=== PATIENT | male | born 1995 | race Caucasian/White ===

== ENCOUNTER 2025-01-06 14:21 | Emergency (ER) | payer OTHER, SELFPAY ==
--- OUTSIDE RECORDS SUMMARY | 2025-01-06 14:23 | XMS_ITS | Clinical Summary ---
Author Organization [facility] Address [address] [place] [id number] Care Team Providers Care Bar Hostess Name Role Phone Cierra Dahl MD Primary Care Provider [phone] Allergies No known active allergies Medications cetirizine (ZYRTEC) 5 MG tablet Take 1 tablet (5 mg total) by mouth daily. Active melatonin 5 MG tablet Take 1 tablet (5 mg total) by mouth nightly as needed. Active Active Problems Problem Noted Date Diagnosed Date Seasonal allergies 07/18/2024 Immunizations Immunization Administration Dates Next Due Influenza (Generic) 04/14/2015,04/10/2013 Social History Tobacco Use Types Packs/Day Years Used Date Smoking Tobacco: Never Passive Smoke Exposure: Past Smokeless Tobacco: Never Tobacco Cessation:Counseling Given: No Alcohol Use Standard Drinks/Week Comments Yes 15 (1 standard drink = 0.6 oz pu re alcohol) PHQ-2 Answer Date Recorded Patient Health Questionnaire-2 Score 0 07/18/2024 Sex and Gender Information Value Date Recorded Sex Assigned at Male 07/18/2024 12:04 PM ELECTRICAL TRYOUT PERSON Legal Sex Male 7:49 PM CDT Gender Identity Male 07/18/2024 12:04 PM ELECTRICAL TRYOUT PERSON Sexual Orientation Not on file Last Filed Vital Signs Vital Sign Reading Time Taken Comments Blood Pressure 122/80 07/18/2024 11:55 AM ELECTRICAL TRYOUT PERSON Pulse 80 07/18/2024 11:55 AM ELECTRICAL TRYOUT PERSON Temperature 36.6 C (97.9 F) 07/18/2024 11:55 AM ELECTRICAL TRYOUT PERSON Respiratory Rate 14 07/18/2024 11:55 AM ELECTRICAL TRYOUT PERSON Oxygen Saturation 97% 07/18/2024 11:55 AM ELECTRICAL TRYOUT PERSON Inhaled Oxygen Concentration - - Weight 70.3 kg (155 lb) 07/18/2024 11:55 AM ELECTRICAL TRYOUT PERSON Height 180.3 cm (5' 11) 07/18/2024 11:55 AM ELECTRICAL TRYOUT PERSON Body Mass Index 21.62 07/18/2024 11:55 AM ELECTRICAL TRYOUT PERSON Plan of Treatment Health Maintenance Due Date Last Done Comments Annual Physical 12/02/1998 Hepatitis C 12/02/2013 DTaP, Tdap and Td Vaccines ( 1 - Tdap) 12/02/2014 Hepatitis B Vaccines (1 of 3 - 19+ 3-dose series) 12/02/2014 COVID-19 Vaccine (3 - 2023-2 5 season) 2024 11/14/2020, 10/24/2020 PHQ-2 (Physician [place]) Completed 07/18/2024 HPV Vaccines Aged Out No longer eligi ble based on patient's age to complete this topic Meningococcal B Vaccine Aged Out No l onger eligible based on patient's age to complete this topic Meningococcal Vaccine Aged Out No argelia sharda eligible based on patient's age to complete this topic Pneumococcal Vaccine: Pediatrics (0 to 5 Years) and At-Risk Patients (6 to 49 Years) Aged Out No longer eligible b ased on patient's age to complete this topic RSV Immunizations Under 20 Months Aged Out No longer eligible b ased on patient's age to complete this topic Insurance [facility] Care Teams Bar Hostess Relationship Specialty Start Date End Date Cierra Dahl MD [address] [place] [id number] PCP - General FAMILY PRACTICE 07/18/24
[2025-01-06 14:24] VITALS: BP 129/81; PULSE 125; RESP 18; TEMP 36.9; O2SAT 99
--- NOTE | 2025-01-06 14:43 | ECG_ITS ---
Test Date: 2025-01-06 15:17:13 Measurements Intervals [place] Rate: 103 P: 72 TN: 169 QRS: 78 QRSD: 82 T: 59 QT: 354 QTc: 465 Interpretive Statements SINUS TACHYCARDIA ABNORMAL RHYTHM ECG No previous ECG available for comparison Electronically Signed On 01-07-2025 22:33:54 CDT by Elly Jacinto M.D.
--- OUTSIDE RECORDS SUMMARY | 2025-01-06 14:46 | XMS_ITS | Clinical Summary ---
Author Organization [facility] Address [address] [place] [id number] Care Team Providers Care Bottler Helper Name Role Phone Cierra Dahl MD Primary Care Provider [phone] Allergies No known active allergies Medications cetirizine [...] Sex Assigned at Male 07/18/2024 12:04 PM EPIC TRAINER Legal Sex Male 7:49 PM CDT Gender Identity Male 07/18/2024 12:04 PM EPIC TRAINER Sexual Orientation Not on file Last Filed Vital Signs Vital Sign Reading Time Taken Comments Blood Pressure 122/80 07/18/2024 11:55 AM EPIC TRAINER Pulse 80 07/18/2024 11:55 AM EPIC TRAINER Temperature 36.6 C (97.9 F) 07/18/2024 11:55 AM EPIC TRAINER Respiratory Rate 14 07/18/2024 11:55 AM EPIC TRAINER Oxygen Saturation 97% 07/18/2024 11:55 AM EPIC TRAINER Inhaled Oxygen Concentration - - Weight 70.3 kg (155 lb) 07/18/2024 11:55 AM EPIC TRAINER Height 180.3 cm (5' 11) 07/18/2024 11:55 AM EPIC TRAINER Body Mass Index 21.62 07/18/2024 11:55 AM EPIC TRAINER Plan of Treatment Health Maintenance Due Date Last Done Comments Annual Physical 12/02/1998 Hepatitis C 12/02/2013 DTaP, Tdap and Td Vaccines ( 1 - Tdap) 12/02/2014 Hepatitis B Vaccines (1 of 3 - 19+ 3-dose series) 12/02/2014 COVID-19 Vaccine (3 - 2023-2 5 season) 2024 11/14/2020, 10/24/2020 PHQ-2 (Physician [place]) Completed 07/18/2024 HPV Vaccines Aged Out No [...] topic Insurance [facility] Care Teams Bottler Helper Relationship Specialty Start Date End Date Cierra Dahl MD [address] [place] [id number] PCP - General FAMILY PRACTICE 07/18/24
[2025-01-06 15:08] LABS: Hematocrit 41.3 % (42.0-52.0); Hemoglobin 14.5 g/dL (14.0-18.0); Immature Granulocyte Percent A 0.5 % (0-0.5); Lymphocytes Absolute Auto 1.28 K/mm3 (0.9-3.2); Mean Corpuscular HGB Conc 35.1 g/dl (32-36); Mean Corpuscular Hemoglobin 33.3 pg (26-34); Mean Corpuscular Volume 94.9 fl (80-100); Nucleated Red Blood Cells Absolute Auto 0.000 K/mm3 (0.0-0.012); Nucleated Red Blood Cells Perc 0.0 % (0.0-0.2); Platelet Count Result 252 k/mm3 (150-375); Red Blood Count 4.35 M/mm3 (4.6-6.20); White Blood Count 3.8 K/mm3 (4.5-10.0)
[2025-01-06 15:19] LABS: INR 1.1; Prothrombin Time 14.1 Seconds (11.1-14.7)
[2025-01-06 15:21] LABS: Partial Thromboplastin Time 29.3 Seconds (22.3-36.8)
[2025-01-06] MEDS: SODIUM CHLORIDE 0.9% IV 2,000 ML 999 ML IV CONT (15:24)
[2025-01-06 15:25] VITALS: BP 134/105; PULSE 96; RESP 16; O2SAT 99
[2025-01-06 15:28] LABS: Alanine Aminotransferase 253 U/L (6-50); Albumin Level 4.2 g/dL (3.5-5.1); Alkaline Phosphatase 83 U/L (38-126); Anion Gap 14 mmol/L (4-12); Aspartate Amino Transferase 295 U/L (17-59); Bilirubin,Total 0.9 mg/dL (0.2-1.3); Blood Urea Nitrogen 3 mg/dL (9-20); Calcium 9.1 mg/dL (8.4-10.2); Carbon Dioxide 25 mmol/L (22-30); Chloride 101 mmol/L (98-107); Estimated CRCL calculation 149 ml/min; Estimated Glomerular Filt Rate > 60; Glucose 94 mg/dL (65-110); Potassium 3.6 mmol/L (3.4-5.0); Sodium 140 mmol/L (137-145); Total Protein 7.2 g/dL (6.3-8.2)
[2025-01-06 17:18] VITALS: BP 125/94; PULSE 98; RESP 18; O2SAT 98
--- NOTE | 2025-01-06 17:36 | ED_ITS ---
HPI - General Adult General Chief complaint: Eye Problems Stated complaint: eye problem Time Seen by Provider: 01/06/25 14:30 History of Present Illness HPI narrative: 29-year-old male present to the emergency department for evaluation for dry eyes. Patient states he has been drinking heavily over the course of the weekend and did use his Adderall that was not his own. Patient does report tachycardia and dehydration. Patient states he does drink heavier than he thinks he showed but does not feel that he has a drinking problem. Patient states he is attempting to decrease alcohol consumption. Denies any change in vision denies any headache. Patient denies any chest pain or shortness of breath. Related Data Allergies Allergy/AdvReac Type Severity Reaction Status Date / Time No Known Allergies Allergy Unknown Verified 01/06/25 15:25 Review of Systems 2 Review of Systems: All systems reviewed & are unremarkable except as noted in HPI and below Exam 2 Narrative: APPEARANCE: Well appearing, no pain, no distress, well-nourished. HEAD: normocephalic, atraumatic. EYES: Mild conjunctival injection with no fluorescein uptake no evidence of corneal abrasion NOSE: Normal no drainage EARS:TMS clear with good light reflex. THROAT: Pharynx clear, no exudate. NECK: Supple. No adenopathy, no masses. RESPIRATORY: Airway patent, respirations nonlabored. Clear to auscultation bilaterally, no rales, rhonchi, wheezing. CARDIOVASCULAR: Regular rate and rhythm without murmurs rubs or gallops. ABDOMINAL: Soft, nontender, nondistended, normal bowel sounds MUSCULOSKELETAL: Moves all extremities. Strength/ROM intact, No edema, No calf tenderness. NEURO: Alert. Cranial nerves II through XII intact. Grossly intact SKIN: Warm, dry. Normal Color Course Vital Signs Vital signs: Vital Signs Temperature 98.4 F 01/06/25 14:24 Pulse Rate 125 H 01/06/25 14:24 Respiratory Rate 18 01/06/25 14:24 Blood Pressure 129/81 01/06/25 14:24 Pulse Oximetry 99 01/06/25 14:24 Oxygen Delivery Room Air 01/06/25 14:24 Temperature 98.4 F 01/06/25 14:24 Pulse Rate 100 01/06/25 17:45 Respiratory Rate 16 01/06/25 17:45 Blood Pressure 118/76 01/06/25 17:45 Pulse Oximetry 99 07/06/25 17:45 Oxygen Delivery Room Air 01/06/25 14:24 Medical Decision Making MDM Narrative Medical decision making narrative: 29-year-old male presents emergency department for evaluation for dry eyes. Patient is currently afebrile with no leukocytosis hemoglobin 14.5. Patient had a INR of 1.1. Patient does have mild elevation in AST and ALT. Patient does admit to drinking heavily over the last few days. Patient states he does not drink every day. Patient states he does drink heavier than he probably showed. Patient is considering sling down on his drinking. Patient does have history of seasonal allergies and this may be part of the underlying issue with the itching of his eyes. Patient had no for seen uptake or evidence of corneal injury. Patient does have bilateral conjunctival injection with no discharge. Advised to use natural tears for lubrication along with [id number] antihistamine eye drop. Differential Diagnosis Differential Diagnosis: Corneal abrasion, conjunctivitis, dehydration, alcohol intoxication, substance abuse Vital Signs Vital Signs: Vital Signs Temperature 98.4 F 01/06/25 14:24 Pulse Rate 125 H 01/06/25 14:24 Respiratory Rate 18 01/06/25 14:24 Blood Pressure 129/81 01/06/25 14:24 Pulse Oximetry 99 01/06/25 14:24 Oxygen Delivery Room Air 01/06/25 14:24 Temperature 98.4 F 01/06/25 14:24 Pulse Rate 100 01/06/25 17:45 Respiratory Rate 16 01/06/25 17:45 Blood Pressure 118/76 01/06/25 17:45 Pulse Oximetry 99 01/06/25 17:45 Oxygen Delivery Room Air 01/06/25 14:24 Lab Data Lab results reviewed: Yes I reviewed the patient's lab results. 01/06/25 14:59 01/06/25 14:59 Labs: Lab Results 01/06/25 01/06/25 Range/Units 14:59 17:23 WBC 3.8 L (4.5-10.0) K/mm3 RBC 4.35 L (4.6-6.20) M/mm3 Hgb 14.5 (14.0-18.0) g/dL Hct 41.3 L (42.0-52.0) % MCV 94.9 (80-100) fl MCH 33.3 (26-34) pg MCHC 35.1 (32-36) g/dl RDW 11.9 (11.5-14.5) % Plt Count 252 (150-375) k/mm3 MPV 8.9 (7.4-10.4) fl Immature Gran % (Auto) 0.5 (0-0.5) % Neut % (Auto) 46.8 (45.5-73.1) % Lymph % (Auto) 33.6 (18.3-44.2) % [place] % (Auto) 16.0 H (2.6-8.5) % Eos % (Auto) 1.8 (0-4.4) % Baso % (Auto) 1.3 H (0.2-1.2) % Lymph # (Auto) 1.28 (0.9-3.2) K/mm3 [place] # (Auto) 0.6 (0.1-0.6) K/mm3 Eos # (Auto) 0.1 (0-0.3) K/mm3 Baso # (Auto) 0.1 (0.0-0.1) K/mm3 Abs Immat Gran (auto) 0.02 (0.00-0.031) K/mm3 Absolute Neuts (auto) 1.8 (1.3-6.7) K/mm3 Absolute Nucleated RBC 0.000 (0.0-0.012) K/mm3 Nucleated RBC % 0.0 (0.0-0.2) % PT 14.1 (11.1-14.7) Seconds INR 1.1 APTT 29.3 (22.3-36.8) Seconds Sodium 140 (137-145) mmol/L Potassium 3.6 (3.4-5.0) mmol/L Chloride 101 (98-107) mmol/L Carbon Dioxide 25 (22-30) mmol/L Anion Gap 14 H (4-12) mmol/L BUN 3 L (9-20) mg/dL Creatinine 0.58 L (0.7-1.3) mg/dL Estim Creat Clear Calc 149 ml/min Estimated GFR > 60 (59 - ) Glucose 94 (65-110) mg/dL Lactic Acid 2.2 H 1.9 (0.7-2.0) mmol/L Calcium 9.1 (8.4-10.2) mg/dL Total Bilirubin 0.9 (0.2-1.3) mg/dL AST 295 H (17-59) U/L ALT 253 H (6-50) U/L Alkaline Phosphatase 83 (38-126) U/L Total Protein 7.2 (6.3-8.2) g/dL Albumin 4.2 (3.5-5.1) g/dL Discharge Plan Discharge Clinical Impression: Conjunctival injection Patient Disposition: Home Condition: Stable Instructions: Antibiotic Form, Eye Lubricant (Into the eye) Additional Instructions: Use natural tears to lubricate your eyes. I do recommend using antihistamine eyedrops such as, [place], as directed. Drink plenty of fluids. Avoid excessive alcohol intake. Do not take prescription medications that are not prescribed to you. Have close follow-up with your primary care physician. I do recommend close follow-up with Ophthalmology. Patient Language: Marshallese Follow-up/Referrals: Cierra Dahl [Other]
[2025-01-06 17:45] VITALS: BP 118/76; PULSE 100; RESP 16; O2SAT 99
== END 2025-01-06 18:00 | disposition home or self-care (01) ==
PROVIDERS: Emergency Provider Emergency Medicine
DX: H44.003 Unspecified purulent endophthalmitis, bilateral (principal)
CPT/HCPCS: 36415; 80053; 83605; 85025; 85610; 85730; 93005; 96360; 96361; 99283; J7030